=== PATIENT | male | born 1995 | race African-American/Black ===

== ENCOUNTER 2025-08-23 02:01 | Inpatient (IN) | payer MEDICAID ==
[2025-08-23] VITALS (8 sets, daily range): BP systolic 114–163; BP diastolic 62–111; PULSE 87–119; RESP 18–22; TEMP 36.2–36.9; O2SAT 92–99
[~2025-08-23] VITALS: Ht 162.6 cm; Wt 69.7 kg
[2025-08-23] MEDS: SODIUM CHLORIDE 0.9% 1,000 ML IV ONE (02:30)
[2025-08-23] MEDS: PREDNISONE 20MG TABLET PO ONE (02:30)
[2025-08-23 02:38] LABS: BASOPHILS % 0.7 % (0.0-2.0); EOSINOPHILS % 1.6 % (0.0-5.0); HEMATOCRIT. 46.2 % (42.0-52.0); HEMOGLOBIN. 15.3 g/dL (14.0-18.0); LYMPHOCYTES % 19.6 % (20.0-50.0); MEAN PLATELET VOLUME 10.0 fl (7.4-10.4); MONOCYTES % 7.0 % (2.0-8.0); NEUTROPHILS % 71.1 % (40.0-76.0); PLATELET 165 x1000/uL (130-400); RED BLOOD CELL COUNT 5.44 mill/uL (4.7-6.1); RED CELL DISTRIBUTION WIDTH 12.8 % (11.6-14.6)
[2025-08-23 02:47] LABS: CREATININE 1.1 mg/dL (0.6-1.3); UREA NITROGEN BLOOD 7 mg/dL (9-23)
[2025-08-23] MEDS: ALBUTEROL (0.083%) 2.5MG/3ML NEB HHN ONE (02:56)
[2025-08-23] MEDS: IPRATROPIUM BROMIDE (0.02%) 0.5MG/2.5ML NEB HHN ONE (02:57)
[2025-08-23] MEDS: KCL 20MEQ/100ML PREMIX 100 ML IV SCH (03:52)
[2025-08-23 04:08] LABS: TROPONIN I HIGH SENSITIVITY < 4 ng/L (3.0-53)
[2025-08-23 04:27] LABS: BG BASE EXCESS -1.4 mmol/L (-2.0-3.0); BG CARBOXYHEMOGLOBIN 4.4 % (0.5-1.5); BG DEOXYHEMOGLOBIN 6.9 % (0.0-5.0); BG FRACTION INSPIRED OXYGEN 28; BG HCO3 ACT 23.2 mmol/L (21.0-28.0); BG METHEMOGLOBIN 0.2 % (0.5-1.5); BG OXYGEN SATURATION 92.8 % (94.0-98.0); BG OXYHEMOGLOBIN 88.5 % (94.0-98.0); BG PCO2 38.8 mmHg (35.0-48.0); BG PH 7.394 (7.350-7.450); BG PO2 67.1 mmHg (83.0-108.0); BG SAMPLE SITE RIGHT RADIAL; BG TOTAL HEMOGLOBIN 14.7 g/dL (13.5-17.5); BG VENT MODE NASAL CANNULA
[2025-08-23] MEDS ORDERED: ACETAMINOPHEN 325MG TABLET PO PRN ×2 (06:30)
[2025-08-23] MEDS ORDERED: IPRATROPIUM/ALBUTEROL 0.5-3(2.5)MG/3ML NEB HHN PRN (06:30)
[2025-08-23] MEDS ORDERED: AZITHROMYCIN 500 MG in DEXT 5% WATER 250 ML IV SCH (06:30)
[2025-08-23] MEDS ORDERED: CLONIDINE 0.1MG TABLET PO PRN (06:30)
[2025-08-23] MEDS ORDERED: ONDANSETRON HCL 4MG/2ML INJ IV PRN (06:30)
[2025-08-23] MEDS ORDERED: MAGNESIUM/ALUMINUM HYDROXIDE/SIMETHICONE 30ML UDC PO PRN (06:30)
[2025-08-23] MEDS: THIAMINE HCL 100MG TABLET PO SCH (09:53)
[2025-08-23] MEDS: AZITHROMYCIN 500MG/250ML 250 ML IV SCH (09:56)
[2025-08-23] MEDS: METHYLPREDNISOLONE SOD SUCC 40MG/ML (ACT-O-VIAL) IV SCH (11:40)
[2025-08-23] MEDS: IPRATROPIUM/ALBUTEROL 0.5-3(2.5)MG/3ML NEB HHN SCH (11:43)
[2025-08-23 18:35] LABS: TROPONIN I HIGH SENSITIVITY < 4 ng/L (3.0-53)
[2025-08-23 23:37] LABS: TROPONIN I HIGH SENSITIVITY < 4 ng/L (3.0-53)
[2025-08-24 02:50] VITALS: PULSE 89; RESP 20; O2SAT 96
[2025-08-24 03:44] VITALS: BP 136/71; PULSE 107; RESP 20; TEMP 36.4; O2SAT 95
[2025-08-24 06:34] LABS: CREATININE 1.2 mg/dL (0.6-1.3); UREA NITROGEN BLOOD 10 mg/dL (9-23)
[2025-08-24 06:37] LABS: BASOPHILS % 0.8 % (0.0-2.0); EOSINOPHILS % 1.7 % (0.0-5.0); HEMATOCRIT. 50.3 % (42.0-52.0); HEMOGLOBIN. 16.6 g/dL (14.0-18.0); LYMPHOCYTES % 30.8 % (20.0-50.0); MEAN PLATELET VOLUME 10.2 fl (7.4-10.4); MONOCYTES % 10.3 % (2.0-8.0); NEUTROPHILS % 56.4 % (40.0-76.0); PLATELET 196 x1000/uL (130-400); RED BLOOD CELL COUNT 5.91 mill/uL (4.7-6.1); RED CELL DISTRIBUTION WIDTH 12.5 % (11.6-14.6)
[2025-08-24 06:38] LABS: T4 FREE 1.34 ng/dL (0.89-1.76)
[2025-08-24 08:00] VITALS: BP 122/82; PULSE 111; RESP 20; TEMP 36.5; O2SAT 100
[2025-08-24 09:20] VITALS: PULSE 80; RESP 14; O2SAT 98
[2025-08-24] MEDS ORDERED: PREDNISONE 10MG TABLET PO SCH (18:10)
== END 2025-08-24 10:00 | disposition left against medical advice (07) | DRG 140 ==
LOC: ER 02:12 → 7WST 04:47 → EDBEDREQTM 04:55 → EDBEDREQ 04:55 → ENRESERV 07:07
PROVIDERS: ADMIT Student in an Organized Health Care Education/Training Program; ATTEND Student in an Organized Health Care Education/Training Program
DX: J44.0 Chronic obstructive pulmonary disease with (acute) lower respiratory infection (principal); J96.01 Acute respiratory failure with hypoxia; J18.9 Pneumonia, unspecified organism; J45.901 Unspecified asthma with (acute) exacerbation; F19.90 Other psychoactive substance use, unspecified, uncomplicated; F17.210 Nicotine dependence, cigarettes, uncomplicated; F10.90 Alcohol use, unspecified, uncomplicated; Z53.29 Procedure and treatment not carried out because of patient's decision for other reasons; Y90.9 Presence of alcohol in blood, level not specified; Z79.899 Other long term (current) drug therapy; Z91.148 Patient's other noncompliance with medication regimen for other reason
CPT/HCPCS: 36415; 36600; 71045; 80048; 80320; 82375; 82805; 83735; 84439; 84443; 84484; 85025; 93005; 94070; 94640; 94664; 99285; J0456; J2919; J3480; J7030; J7512; G0480

== ENCOUNTER 2025-09-03 01:03 | Emergency (ER) | payer MEDICAID ==
[~2025-09-03] VITALS: Ht 170.2 cm; Wt 82.0 kg
[2025-09-03 01:07] VITALS: O2SAT 97
[2025-09-03] MEDS: ACETAMINOPHEN 500MG TABLET PO ONE (02:35)
[2025-09-03] MEDS: TETANUS, DIPHTHERIA, PERTUSSIS VAC/PF 0.5ML (>10YR OLD) IM ONE (02:36)
[2025-09-03] MEDS: LIDOCAINE HCL 1% 20ML VIAL INFIL ONE (03:28)
[2025-09-03] MEDS: BACITRACIN ZINC OINT UDPKT TOP ONE (03:29)
[2025-09-03] MEDS ORDERED: AMPICILLIN SOD/SULBACTAM NA 1.5 G in SODIUM CHLORIDE 0.9% 50 ML IV SCH (04:30)
[2025-09-03 04:52] VITALS: BP 135/94; PULSE 66; RESP 15; TEMP 36.6; O2SAT 97
[2025-09-03] MEDS ORDERED: IBUP-1455 MT (04:54)
[2025-09-03] MEDS ORDERED: BO1 TP (04:54)
[2025-09-03] MEDS ORDERED: AMOX1TAB16 MT (04:54)
[2025-09-03] MEDS: AMOXICILLIN/POTASSIUM CLAVULANATE 875/125MG TAB PO ONE (05:05)
== END 2025-09-03 05:17 | disposition home or self-care (01) ==
LOC: ER 01:03
DX: S01.81XA Laceration without foreign body of other part of head, initial encounter (principal); S51.812A Laceration without foreign body of left forearm, initial encounter; J45.909 Unspecified asthma, uncomplicated; Z23 Encounter for immunization; X58.XXXA Exposure to other specified factors, initial encounter; Y93.89 Activity, other specified; Y92.89 Other specified places as the place of occurrence of the external cause; Y99.8 Other external cause status
CPT/HCPCS: 70450; 70486; 90715; 12015; 90471; 99285; J2003; Z7610 ×3; J0295

== ENCOUNTER 2025-09-12 21:12 | Inpatient (IN) | payer MEDICAID ==
[~2025-09-12] VITALS: Ht 170.2 cm; Wt 68.9 kg
[~2025-09-12 21:12] MED LIST: AMOX1TAB16 MT; BO1 TP; IBUP-1455 MT
[2025-09-12] MEDS: METHYLPREDNISOLONE SOD SUCC 125MG/2ML (ACT-O-VIAL) IV ONE (21:52)
[2025-09-12] MEDS: ALBUTEROL (0.083%) 2.5MG/3ML NEB HHN SCH (21:53)
[2025-09-12] MEDS: IPRATROPIUM BROMIDE (0.02%) 0.5MG/2.5ML NEB HHN SCH (21:53)
[2025-09-12 21:55] VITALS: PULSE 115; RESP 18; O2SAT 97
[2025-09-12 22:01] LABS: BASOPHILS % 0.6 % (0.0-2.0); EOSINOPHILS % 3.4 % (0.0-5.0); HEMATOCRIT. 49.8 % (42.0-52.0); HEMOGLOBIN. 16.4 g/dL (14.0-18.0); LYMPHOCYTES % 24.4 % (20.0-50.0); MEAN PLATELET VOLUME 9.7 fl (7.4-10.4); MONOCYTES % 6.9 % (2.0-8.0); NEUTROPHILS % 64.7 % (40.0-76.0); PLATELET 230 x1000/uL (130-400); RED BLOOD CELL COUNT 5.78 mill/uL (4.7-6.1); RED CELL DISTRIBUTION WIDTH 12.4 % (11.6-14.6)
[2025-09-12 22:13] LABS: CREATININE 1.4 mg/dL (0.6-1.3); UREA NITROGEN BLOOD 9 mg/dL (9-23)
[2025-09-12 22:15] LABS: TROPONIN I HIGH SENSITIVITY < 4 ng/L (3.0-53)
[2025-09-12] MEDS: MAGNESIUM 2 G PREMIX 50 ML IV ONE (22:41)
[2025-09-12 22:49] VITALS: PULSE 104; RESP 20; O2SAT 98
[2025-09-12 23:01] VITALS: PULSE 99; RESP 18; O2SAT 97
[2025-09-12] MEDS: SODIUM CHLORIDE 0.9% 1,000 ML IV ONE (23:45)
[2025-09-12 23:53] LABS: INR 1.1
[2025-09-13] VITALS (7 sets, daily range): BP systolic 115–135; BP diastolic 59–80; PULSE 85–121; RESP 16–20; TEMP 36.5848–37.9; O2SAT 95–100
[2025-09-13] MEDS ORDERED: IPRATROPIUM/ALBUTEROL 0.5-3(2.5)MG/3ML NEB HHN PRN (05:15)
[2025-09-13] MEDS: METHYLPREDNISOLONE SOD SUCC 40MG/ML (ACT-O-VIAL) IV SCH (05:55)
[2025-09-13] MEDS: BUDESONIDE 0.5MG/2ML NEB HHN SCH (07:57)
[2025-09-13] MEDS: IPRATROPIUM/ALBUTEROL 0.5-3(2.5)MG/3ML NEB HHN SCH (08:00)
[2025-09-13 10:50] LABS: INFLUENZA TYPE A Presumptive Negative (Pres. Neg.); INFLUENZA TYPE B Presumptive Negative (Pres. Neg.)
[2025-09-13 10:51] LABS: RESPIRATORY SYNCYTIAL VIRUS Not Detected (Not Detectd)
[2025-09-14] VITALS: BP 122/75; PULSE 102; RESP 20; TEMP 36.8; O2SAT 99
[2025-09-14 04:00] VITALS: BP 120/72; PULSE 105; RESP 20; TEMP 36.4; O2SAT 99
[2025-09-14 08:05] VITALS: PULSE 81; RESP 16; O2SAT 93
== END 2025-09-14 10:50 | disposition left against medical advice (07) | DRG 816 ==
LOC: ER 21:12 → EDBEDREQTM 23:48 → EDBEDREQ 23:48 → ENRESERV 09-13 00:22 → 5WST 09-13 01:49
PROVIDERS: ADMIT Internal Medicine; ATTEND Internal Medicine
DX: T40.5X1A Poisoning by cocaine, accidental (unintentional), initial encounter (principal); J96.01 Acute respiratory failure with hypoxia; J68.0 Bronchitis and pneumonitis due to chemicals, gases, fumes and vapors; N17.9 Acute kidney failure, unspecified; Z20.822 Contact with and (suspected) exposure to COVID-19; F17.210 Nicotine dependence, cigarettes, uncomplicated; N18.9 Chronic kidney disease, unspecified; Z53.29 Procedure and treatment not carried out because of patient's decision for other reasons; Y92.89 Other specified places as the place of occurrence of the external cause; J45.901 Unspecified asthma with (acute) exacerbation; F14.188 Cocaine abuse with other cocaine-induced disorder
CPT/HCPCS: 36415; 71045; 80048; 83605; 83880; 84145; 84484; 85025; 87420; 87426; 87804; 93005; 94070; 94640; 99291; J2919; J3475; J7030; J7626